=== PATIENT | female | born 1945 | race Caucasian/White ===

== ENCOUNTER 2025-05-13 08:20 | Inpatient (IN) ==
[2025-05-13] MEDS: MoRPHine SULFATE 4 MG/ML 1 ML CARP\\VIAL IV STA (09:09)
[2025-05-13] MEDS: ONDANSETRON INJ 2 MG/ML 2 ML VIAL IV STA (09:09)
--- NOTE | 2025-05-13 09:16 | Emergency Department Note ---
Impression & Plan Acute left lower quadrant pain, Diverticulitis, Acute UTI (urinary tract infection), Acute left-sided low back pain ED Provider Note HISTORY OF PRESENT ILLNESS: Patient is an 80-year-old female presenting with left low back pain and left lower quadrant abdominal pain. Patient reports that symptoms have been ongoing for over a week. She was seen 4 days ago and reports that the pain is just gotten progressively worse. She locates the pain to the left lower back and states it wraps around her left flank and into her left lower quadrant. She describes it as "it feels really numb." She states she been taking oxycodone for pain but it has not helped. Denies any dysuria or hematuria. Denies any vomiting but does report some intermittent nausea. She does report some episodes of diarrhea. Denies any recent antibiotic use. Denies any fevers or chills. Abdominal surgical history significant for tubal ligation and cholecystectomy. ROS: as above PHYSICAL EXAM: Constitutional: Patient appears in no acute distress. HENT: Head: Normocephalic and atraumatic. Eyes: EOMI, PERRL Mouth/Throat: Mucous membranes moist. Neck: Trachea midline. Neck supple. Cardiovascular: RRR, No murmurs, rubs or gallops. Intact distal pulses. Pulmonary/Chest: No respiratory distress. Breath sounds clear and equal bilaterally. No wheezes or rales. Abdominal: Abdomen soft, no tenderness, rebound or guarding. Back: No midline spinal tenderness, no CVA tenderness. No step-offs. Left lower paraspinal tenderness. No rashes Musculoskeletal: No edema, tenderness or deformity noted. Skin: Warm and dry. No rash, erythema, pallor or cyanosis Psychiatric: Appropriate mood and affect for situation. Neurological: Alert and keenly responsive. CN II-XII grossly intact, moving all extremities equally and fully. MDM: - Vitals signs showed hypertension - History obtained via patient. History as above. - Chronic conditions affecting care: HTN; CAD - Differential diagnoses include, but are not limited to: Aortic aneurysm; diverticulitis; ischemic colitis; inguinal hernia; ureteral calculi - Order placed for continuous cardiac monitoring. At this time, monitor showed rate of 73 bpm with normal sinus rhythm, per my interpretation. - External medical records reviewed. - Laboratory workup interpreted by myself showed normal WBC; slight hyponatremia (Na 134); normal lactate; normal AST/ALT; normal lipase - UA showed evidence of infection. - CT lumbar spine with IV contrast negative for acute fracture. I have degenerative changes. - CT abdomen/pelvis with IV contrast showed findings suspicious for diverticulitis. - Patient given 4 mg IV morphine and 4 mg IV zofran for symptomatic management in the emergency department. On reassessment, she reports her pain has slightly improved. Given 4.5 g of IV Zosyn for UTI and diverticulitis treatment. - Discussed results with the patient. She is feeling slightly improved after the pain medication, but is hesitant to go home with her continued pain and infections. Will discuss case with hospitalist service. - Discussion was had with geriatric case manager about patient's case and need for admission - Hospitalist consulted for admission - Patient admitted to [facility] hospitalist service for further evaluation and management. ASSESSMENT AND PLAN: Diagnosis: Acute left lower quadrant pain; left low back pain; diverticulitis; acute UTI Plan: admit Past Med/Surg History Problem List (Updated 05/13/25 @ 12:13 by Eden Brown MD) Acute left-sided low back pain (Acute) Acute UTI (urinary tract infection) (Acute) Diverticulitis (Acute) Back pain (Acute) Acute left lower quadrant pain (Acute) Medical History (Updated 05/13/25 @ 12:13 by Eden Brown MD) Tremor Arthritis GERD (gastroesophageal reflux disease) HLD (hyperlipidemia) Hypertension Surgical History (Updated 05/13/25 @ 11:54 by Nay Hutchins PA-C) History of epidural steroid injection into lumbar spine Hx of colonoscopy Hx of cholecystectomy Hx of cataract surgery Family History (Updated 05/13/25 @ 11:54 by Nay Hutchins PA-C) Mother Breast cancer Thyroid disease Social History (Updated 05/13/25 @ 11:54 by Nay Hutchins PA-C) Smoking Status: Never smoker Hx Alcohol Use: No Hx Substance Use: No Preferred Language: Indonesian Feels Safe at Home: Yes Allergies Allergies Allergy/AdvReac Type Severity Reaction Status Date / Time No Known Allergies Allergy Verified 01/24/16 06:27 Home Meds Home Medications Medication Instructions Recorded Confirmed atorvastatin 10 mg tablet 10 mg PO .3X A WEEK 07/16/25 07/16/25 propranolol 80 mg capsule,24 80 mg PO DAILY 05/13/25 05/13/25 hr,extended release Previous Rx's Medication Instructions Recorded oxycodone 5 mg tablet 5 mg PO Q8H PRN pain #10 tabs 05/11/25 Results & Data (ED) Vital Signs Vital Signs - 24 hr 05/13/25 08:24 05/13/25 08:45 05/13/25 09:10 Temperature 36.7 C Temperature Source Temporal Artery Scan Pulse Rate 69 67 73 Pulse Rate from SpO2 Sensor Pulse Rhythm Regular Respiratory Rate 20 20 20 Respiratory Effort / Characteristics Non-Labored Spontaneous Respiratory Depth Normal Blood Pressure 209/105 H 192/100 H Blood Pressure Mean 139 130 Pulse Oximetry 96 98 96 Oxygen Delivery Method Room Air Room Air Room Air Sepsis Recent Fever Within 48 Hours No Sepsis New/Unexplained Change in Mental Status No Sepsis Action Taken by Nursing No Action Required 05/13/25 09:15 05/13/25 09:30 05/13/25 10:30 Temperature Temperature Source Pulse Rate 74 68 73 Pulse Rate from SpO2 Sensor 68 73 Pulse Rhythm Respiratory Rate 24 14 Respiratory Effort / Characteristics Respiratory Depth Blood Pressure 160/91 H 169/86 H Blood Pressure Mean 114 113 Pulse Oximetry 95 96 Oxygen Delivery Method Room Air Room Air Sepsis Recent Fever Within 48 Hours Sepsis New/Unexplained Change in Mental Status Sepsis Action Taken by Nursing Laboratory Data 05/13/25 08:40 05/13/25 08:40 Lab Results 05/13/25 05/13/25 05/13/25 Range/Units 08:40 09:00 09:07 WBC 9.00 (4.8-10.8) K/ul RBC 4.52 (4.20-5.40) M/uL Hgb 14.8 (12.0-16.0) g/dl Hct 42.5 (37.0-47.0) % MCV 94.0 (80.0-100.0) fL MCH 32.7 (25.0-34.0) pg MCHC 34.8 (32.0-36.0) g/dL RDW Std Deviation 43.8 (36.4-46.3) fL RDW Coeff of Gregory 12.6 (11.5-14.5) % Plt Count 184 (130-400) K/uL MPV 11.5 (9.4-12.4) fL Immature Gran % (Auto) 0.1 % Neut % (Auto) 49.2 % Lymph % (Auto) 34.3 % [place] % (Auto) 8.3 % Eos % (Auto) 7.7 % Baso % (Auto) 0.4 % Neut # (Auto) 4.42 (1.40-6.50) K/uL Lymph # (Auto) 3.09 (1.20-3.40) K/uL [place] # (Auto) 0.75 H (0.11-0.59) K/uL Eos # (Auto) 0.69 H (0.00-0.50) K/uL Baso # (Auto) 0.04 (0.00-0.20) K/uL Immature Gran # (Auto) 0.01 (0.01-0.20) K/uL PT 11.3 (9.0-12.0) Seconds INR 1.0 (0.9-1.1) Sodium 134 L (136-145) mmol/L Potassium 3.9 (3.5-5.1) mmol/L Chloride 101 (98-107) mmol/L Carbon Dioxide 27 (21-32) mmol/L Anion Gap 6 (3-11) BUN 14 (6-23) mg/dl Creatinine 0.99 (0.6-1.2) mg/dl Est Cr Clr Drug Dosing 48.5 ml/min eGFR 57.28 BUN/Creatinine Ratio 14.1 (10-20) Glucose 113 H (70-99(Fasting)) mg/dl Lactate 0.9 (0.4-2.0) mmol/L Calcium 9.2 (8.6-10.3) mg/dl Total Bilirubin 0.8 (0.2-1.0) mg/dl AST 19 (13-39) U/L ALT 12 (7-52) U/L Alkaline Phosphatase 76 (34-104) U/L Total Protein 8.2 (6.0-8.3) gm/dl Albumin 4.2 (3.4-5.0) gm/dl Globulin 4.0 (2.5-4.0) gm/dl Albumin/Globulin Ratio 1.1 (0.9-2) Lipase 21 (11-82) U/L Urine Color Yellow Urine Appearance Cloudy A (Clear) Urine pH 5.0 (4.5-7.5) Ur Specific [place] 1.027 (1.000-1.030) Urine Protein Trace H (Negative) Urine Glucose (UA) Negative (Negative) Urine Ketones Trace H (Negative) Urine Blood 1+ H (Negative) Urine Nitrite Negative (Negative) Urine Bilirubin Negative (Negative) Urine Urobilinogen Negative (Negative) Ur Leukocyte Esterase 2+ H (Negative) Urine WBC (Auto) 21-50 H (0-5) /hpf Urine RBC (Auto) 11-20 H (0-2) /hpf U Hyaline Cast (Auto) 0-2 (0-2) /lpf U Epithel Cells (Auto) 6-10 H (0-2) /hpf Urine Bacteria (Auto) 2+ H (None Seen) Urine Comment Administered Medications Discontinued Medications Piperacillin Sod/Tazobactam Sod (Zosyn) 4.5 gm in 100 mls @ 200 mls/hr IV NOW ONE; Protocol Stop: 05/13/25 10:59 Last Infusion: 05/13/25 11:36 Dose: Infused Documented By: Admin: 05/13/25 10:38 Dose: 200 mls/hr Documented By: Ioversol (Optiray 320 100ml) 94 ml IV ONCE ONE Stop: 05/13/25 09:57 Last Admin: 05/13/25 09:56 Dose: 94 ml Documented By: ROBERT Morphine Sulfate (Morphine Sulfate 4 Mg/Ml 1 Ml Carp\\Vial) 4 mg IV NOW STA Stop: 05/13/25 08:58 Last Admin: 05/13/25 09:09 Dose: 4 mg Documented By: Ondansetron HCl (Ondansetron Inj 2 Mg/Ml 2 Ml Vial) 4 mg IV NOW STA Stop: 05/13/25 08:58 Last Admin: 05/13/25 09:09 Dose: 4 mg Documented By: Imaging Data Radiologist's Impression: Abdomen/Pelvis CT 05/13/25 08:[address] WITH IV CONTRAST CT DOSE: 1359.68mGy*cm HISTORY: Recurrent and worsening L low back pain; LLQ pain TECHNIQUE: Multiaxial CT images of the abdomen and pelvis were performed following the IV administration of 94 cc of Optiray, A dose lowering technique was utilized adhering to the principles of ALARA. COMPARISON STUDY: 05/11/2025 FINDINGS: The lung bases demonstrate dependent discoid atelectasis. Skeletal structures demonstrate severe degenerative disc disease at L4-5 and L5-S1. The gallbladder is absent. There is post cholecystectomy bile duct distention. There is very mild hepatic steatosis. No focal liver lesions are identified. There is no ascites. The adrenal glands, pancreas, and spleen are unremarkable. There is no obstructive uropathy. Bilateral extrarenal pelves are present. There is no CT evidence of pyelonephritis. The aorta is atherosclerotic. There is no aneurysm identified. There is no periarticular calcification. There is no bowel obstruction or free air. There is no ascites. In the pelvis, there are large diverticula in the distal descending colon and sigmoid colon and there is very minimal pericolonic inflammatory stranding near the juncture of the descending colon and sigmoid colon. The unopacified urinary bladder is grossly negative. The uterus is not significantly enlarged. There is no evidence of an adnexal mass. There is no fluid in cul-de-sac. IMPRESSION: Findings suspicious for mild diverticulitis involving the distal descending/proximal sigmoid colon. ACT 112: Negative or not required by law. The above report was generated using voice recognition software. It may contain grammatical, syntax or spelling errors. Electronically signed by: Stephanie Myers M.D. 05/13/2025 10:[address] 05/13/25 08:57 CT lumbar spine w con CLINICAL HISTORY: L low back pain COMPARISON STUDY: 05/11/2025 FINDINGS: There is osteopenia. No lumbar spine fracture or subluxation. There is diffuse degenerative disc disease and facet degeneration most severe at the lower lumbar spine. There is moderate bilateral neural foramina narrowing at L5- S1. There is possible mild central canal narrowing at L4-5. No severe central canal narrowing seen. No paraspinous hematoma seen. IMPRESSION: 1. No lumbar spine fracture seen. 2. Lumbar degenerative changes most severe at the lower lumbar spine. ACT 112: Negative or not required by law. Electronically signed by: Sp Mccarthy M.D. 05/13/2025 10:47 AM Discharge Plan Visit Data Chief Complaint: Abdominal Pain Stated Complaint: L SIDE PAIN SEVERE ED Provider: Eden Brown Discharge Problem: Acute left lower quadrant pain, Diverticulitis, Acute UTI (urinary tract infection), Acute left-sided low back pain Condition: Fair Forms Stand Alone Forms: My [facility] [employer] Prescriptions Prescriptions: No Action oxycodone 5 mg tablet 5 mg PO Q8H PRN (Reason: pain) Qty: 10 0RF atorvastatin 10 mg tablet 10 mg PO .3X A WEEK Rx Instructions: mon,wed,fri propranolol 80 mg capsule,extended release 24hr 80 mg PO DAILY Referrals Referrals: Rickey Cueva MD [Primary Care Provider] -
[2025-05-13 09:22] LABS: Hematocrit (blood only) 42.5 % (37.0-47.0); Hemoglobin 14.8 g/dl (12.0-16.0); Immature Granulocytes # (auto) 0.01 K/uL (0.01-0.20); Immature Granulocytes % (auto) 0.1 %; Mean Corpuscular Hemoglobin 32.7 pg (25.0-34.0); Mean Corpuscular Volume 94.0 fL (80.0-100.0); Platelet Count 184 K/uL (130-400); RDW Standard Deviation 43.8 fL (36.4-46.3); Red Blood Count 4.52 M/uL (4.20-5.40); White Blood Count 9.00 K/ul (4.8-10.8)
[2025-05-13 09:40] LABS: Alanine Aminotransferase 12.0 U/L (7-52); Albumin Globulin Ratio 1.1 (0.9-2); Alkaline Phosphatase 76.0 U/L (34-104); Anion Gap 6.0 (3-11); Bilirubin,Total 0.8 mg/dl (0.2-1.0); Blood Urea Nitrogen 14.0 mg/dl (6-23); Calcium 9.2 mg/dl (8.6-10.3); Carbon Dioxide 27.0 mmol/L (21-32); Chloride 101.0 mmol/L (98-107); Creatinine Clr Calc Pharmacy 48.5 ml/min; Globulin 4.0 gm/dl (2.5-4.0); Glucose 113.0 mg/dl (70-99(Fasting)); Lipase 21.0 U/L (11-82); Potassium 3.9 mmol/L (3.5-5.1); Sodium 134.0 mmol/L (136-145); Total Protein 8.2 gm/dl (6.0-8.3)
[2025-05-13 09:54] LABS: Appearance Urine Cloudy (Clear); Bacteria Urine Automated 2+ (None Seen); Cast Urine Automated 0-2 /lpf (0-2); Glucose Urine UA Negative (Negative); WBC Urine Automated 21-50 /hpf (0-5)
[2025-05-13] MEDS: OPTIRAY 320 100ml IV ONE (09:56)
[2025-05-13 10:08] LABS: INR 1.0 (0.9-1.1); Prothrombin Time 11.3 Seconds (9.0-12.0)
--- NOTE | 2025-05-13 10:27 | CT Scan Report ---
ABDOMEN AND PELVIS CT WITH IV CONTRAST CT DOSE: 1359.68mGy*cm HISTORY: Recurrent and worsening L low back pain; LLQ pain TECHNIQUE: Multiaxial CT images of the abdomen and pelvis were performed following the IV administrat ion of 94 cc of Optiray, A dose lowering technique was utilized adhering to the principles of ALARA. COMPARISON STUDY: 05/11/2025 FINDINGS: The lung bases demonstrate dependent discoid atelectasis. Skeletal structures demonstrate s evere degenerative disc disease at L4-5 and L5-S1. The gallbladder is absent. There is post cholecystectomy bile duct distention. There is very mild hep atic steatosis. No focal liver lesions are identified. There is no ascites. The adrenal glands, pancreas, and spleen are unremarkable. There is no obstructive uropathy. Bilateral extrarenal pelves are present. There is no CT evidence of pyelonephritis. The aorta is atherosclerotic. There is no aneurysm identified. There is no periarticular calcificatio n. There is no bowel obstruction or free air. There is no ascites. In the pelvis, there are large diverticula in the distal descending colon and sigmoid colon and there is very minimal pericolonic inflammatory stranding near the juncture of the descending colon and sig moid colon. The unopacified urinary bladder is grossly negative. The uterus is not significantly enla rged. There is no evidence of an adnexal mass. There is no fluid in cul-de-sac. IMPRESSION: Findings suspicious for mild diverticulitis involving the distal descending/proximal sigm oid colon. ACT 112: Negative or not required by law. The above report was generated using voice recognition software. It may contain grammatical, syntax o r spelling errors. Electronically signed by: Stephanie Myers M.D. 05/13/2025 10:26 AM
[2025-05-13] MEDS: PIPERACILLIN/TAZOBACTAM 4.5 GM/100 ML BAG IV ONE (10:38)
--- NOTE | 2025-05-13 10:49 | CT Scan Report ---
CT lumbar spine w con CLINICAL HISTORY: L low back pain COMPARISON STUDY: 05/11/2025 FINDINGS: There is osteopenia. No lumbar spine fracture or subluxation. There is diffuse degenerative disc disease and facet degeneration most severe at the lower lumbar spine. There is moderate bilater al neural foramina narrowing at L5-S1. There is possible mild central canal narrowing at L4-5. No sev ere central canal narrowing seen. No paraspinous hematoma seen. IMPRESSION: 1. No lumbar spine fracture seen. 2. Lumbar degenerative changes most severe at the lower lumbar spine. ACT 112: Negative or not required by law. Electronically signed by: Sp Mccarthy M.D. 05/13/2025 10:47 AM
--- NOTE | 2025-05-13 11:56 | History & Physical Report ---
Date of Service May 13, 2025 Assessment & Plan (1) Diverticulitis: (2) Acute UTI (urinary tract infection): (3) Acute left-sided low back pain: (4) Hypertension: (5) HLD (hyperlipidemia): (6) Tremor: Plan This is an 80 yr old F who has a significant PMH of HTN, HLD, GERD, Osteoarthritis who presents to ED 2/2 L sided low back and lower abd pain x 5 days. #Acute uncomplicated Diverticulitis #Abdominal pain admit to medical continue IV zosyn conservative tx with bowel rest, IVF, NPO except sips/chips consider gen surg if no significant improvement recommend c scope 6-8 weeks after resolution #Acute uncomplicated cystitis urinary urg/freq, abnormal urine await urine culture continue IV zosyn for now #Left sided low back pain appears MSK in nature, does not appear to go along with other sx may improve with improvement of infections CT Lumbar spine showing DDD apply lidocaine patch, PT/OT for now could consider MRI if worsening or not improving #HTN #Tremor BP elevated likely 2/2 to pain continue propranolol #DVT ppx: Lovenox FULL CODE PCP: Hammad Dispo: admit to medical Pt was seen and examined in collaboration with Dr. Carrington, please see addendum I spent a total of 60 minutes coordinating, documenting and providing care for this patient excluding time spent in the performance of separately billed services or time spent by another provider/QHP. History of Present Illness Chief Complaint: LLQ abd pain x 5 days. Primary Care Provider: Rickey Cueva MD This is an 80 yr old F who has a significant PMH of HTN, HLD, GERD, Osteoarthritis who presents to ED 2/2 L sided low back and lower abd pain x 5 days. History is obtained from patient, son at bedside, ED provider and external chart review. Patient reports left-sided low back pain along with left lower quadrant and periumbilical abdominal pain that is been progressively getting worse over the last 5 days. She also complains of associated nausea, constipation, last bowel movement was 3 days ago, urinary urgency, frequency and dysuria. She denies prior history of diverticulitis. She does have a prior history of urinary tract infections for which she does feel very similar to previous UTI 30 years ago. She denies any fever, chills, sweats, lightheadedness, dizziness, pain, shortness of breath, cough, hematuria or hematochezia. She has been taking [id number] Tylenol without relief. She was seen and evaluated on 05/11 in ED and at that time CT abdomen pelvis was unremarkable. She was prescribed a few tablets of oxycodone for which is not helping. She presents back to ED today due to worsening symptoms. She has been eating/drinking. Currently her pain is a 7 out of 10. Nothing makes the pain better or worse. In ED CT scan of abdomen pelvis reveal findings suspicious for mild diverticulitis involving the distal descending and proximal sigmoid colon. Lumbar spine CT was also ordered due to patient complaining of left-sided low back pain along with left-sided hip pain. Notable findings are moderate bilateral neural foraminal narrowing at L5-S1 and moderate central canal narrow ing at L4-L5. Allergies Allergy/AdvReac Type Severity Reaction Status Date / Time No Known Allergies Allergy Verified 01/24/16 06:27 Home Medications Medication Instructions Recorded Confirmed Type oxycodone 5 mg tablet 5 mg PO Q8H PRN pain #10 tabs 05/11/25 05/13/25 Rx atorvastatin 10 mg tablet 10 mg PO .3X A WEEK 05/13/25 05/13/25 History propranolol 80 mg capsule,24 80 mg PO DAILY 05/13/25 05/13/25 History hr,extended release Past Med/Surg History Problem List (Updated 05/13/25 @ 13:11 by Background Daemon) Acute left-sided low back pain (Acute) Acute UTI (urinary tract infection) (Acute) Diverticulitis (Acute) Back pain (Acute) Acute left lower quadrant pain (Acute) Medical History (Updated 05/13/25 @ 13:11 by Background Daemon) Tremor Arthritis GERD (gastroesophageal reflux disease) HLD (hyperlipidemia) Hypertension Surgical History (Updated 05/13/25 @ 11:54 by Nay Hutchins PA-C) History of epidural steroid injection into lumbar spine Hx of colonoscopy Hx of cholecystectomy Hx of cataract surgery Family History (Updated 05/13/25 @ 11:54 by Nay Hutchins PA-C) Mother Breast cancer Thyroid disease Social History (Updated 05/13/25 @ 11:54 by Nay Hutchins PA-C) Smoking Status: Never smoker Hx Alcohol Use: Yes Alcohol type: wine and hard liquor Hx Substance Use: No Preferred Language: Persian Communication Ability: Effective [employer] Professor Required: No Beliefs That Will Affect Care: None Current Living Situation: Family and Other Current Living Situation Comment: Son lives with patient Feels Safe at Home: Yes Safety Concerns: Feels Safe At This Time Review of Systems Review of Systems: All systems reviewed & are unremarkable except as noted in HPI & below Physical Exam Physical Exam: Constitutional: WD/WN, vitals as above, NAD, sitting up in bed, pleasant, conversing easily Head: Normocephalic, Atraumatic Eyes: PERRL, conjunctivae normal, anicteric sclerae ENMT: external ear and nose normal, oropharynx normal Neck: trachea midline, no thyromegaly normal visual inspection Respiratory: normal respiratory effort, lungs clear to auscultation, no wheeze, rales, rhonchi. Normal insp/exp effort, no accessory muscle use Cardiovascular: RRR, no murmur, no edema Vessels: no JVD or carotid bruit Chest: normal inspection of chest Abdomen: normal bowel sounds, soft, TTP LLQ and periumbilical region, no rebound/guarding, no hepatosplenomegaly Musculoskeletal: arom x4, + pain to palpation L paraspinal musculature Skin: no rashes, warm and dry normal turgor Neurologic: PERRL, EOMI, accommodation nl, no face palsy, no dysarthria CN's II-XI intact bilaterally and moves all extremities Psychiatric: A+Ox3, euthymic affect Results & Data Results & Data Vital Signs (Past 12 Hours) Vital Signs Temp Pulse Resp BP Pulse Ox O2 Del Method 05/13/25 10:30 73 14 169/86 H 96 Room Air 05/13/25 09:30 68 24 160/91 H 95 Room Air 05/13/25 09:15 74 05/13/25 09:10 73 20 96 Room Air 05/13/25 08:45 67 20 192/100 H 98 Room Air 05/13/25 08:24 36.7 C 69 20 209/105 H 96 Room Air Laboratory Results I have independently reviewed and interpreted patient's admitting labs including CBC, CMP, lactate, lipase Diagnostic Findings Abdomen/Pelvis CT 05/13/25 08:[address] WITH IV CONTRAST CT DOSE: 1359.68mGy*cm HISTORY: Recurrent and worsening L low back pain; LLQ pain TECHNIQUE: Multiaxial CT images of the abdomen and pelvis were performed following the IV administration of 94 cc of Optiray, A dose lowering technique was utilized adhering to the principles of ALARA. COMPARISON STUDY: 05/11/2025 FINDINGS: The lung bases demonstrate dependent discoid atelectasis. Skeletal structures demonstrate severe degenerative disc disease at L4-5 and L5-S1. The gallbladder is absent. There is post cholecystectomy bile duct distention. There is very mild hepatic steatosis. No focal liver lesions are identified. There is no ascites. The adrenal glands, pancreas, and spleen are unremarkable. There is no obstructive uropathy. Bilateral extrarenal pelves are present. There is no CT evidence of pyelonephritis. The aorta is atherosclerotic. There is no aneurysm identified. There is no periarticular calcification. There is no bowel obstruction or free air. There is no ascites. In the pelvis, there are large diverticula in the distal descending colon and sigmoid colon and there is very minimal pericolonic inflammatory stranding near the juncture of the descending colon and sigmoid colon. The unopacified urinary bladder is grossly negative. The uterus is not significantly enlarged. There is no evidence of an adnexal mass. There is no fluid in cul-de-sac. IMPRESSION: Findings suspicious for mild diverticulitis involving the distal descending/proximal sigmoid colon. ACT 112: Negative or not required by law. The above report was generated using voice recognition software. It may contain grammatical, syntax or spelling errors. Electronically signed by: Stephanie Myers M.D. 05/13/2025 10:[address] 05/13/25 08:57 CT lumbar spine w con CLINICAL HISTORY: L low back pain COMPARISON STUDY: 05/11/2025 FINDINGS: There is osteopenia. No lumbar spine fracture or subluxation. There is diffuse degenerative disc disease and facet degeneration most severe at the lower lumbar spine. There is moderate bilateral neural foramina narrowing at L5- S1. There is possible mild central canal narrowing at L4-5. No severe central canal narrowing seen. No paraspinous hematoma seen. IMPRESSION: 1. No lumbar spine fracture seen. 2. Lumbar degenerative changes most severe at the lower lumbar spine. ACT 112: Negative or not required by law. Electronically signed by: Sp Mccarthy M.D. 05/13/2025 10:47 AM Medications Administered Medication List Discontinued Medications Piperacillin Sod/Tazobactam Sod (Zosyn) 4.5 gm in 100 mls @ 200 mls/hr IV NOW ONE; Protocol Stop: 05/13/25 10:59 Last Infusion: 05/13/25 11:36 Dose: Infused Documented By: Admin: 05/13/25 10:38 Dose: 200 mls/hr Documented By: Ioversol (Optiray 320 100ml) 94 ml IV ONCE ONE Stop: 05/13/25 09:57 Last Admin: 05/13/25 09:56 Dose: 94 ml Documented By: ROBERT Morphine Sulfate (Morphine Sulfate 4 Mg/Ml 1 Ml Carp\Vial) 4 mg IV NOW STA Stop: 05/13/25 08:58 Last Admin: 05/13/25 09:09 Dose: 4 mg Documented By: Ondansetron HCl (Ondansetron Inj 2 Mg/Ml 2 Ml Vial) 4 mg IV NOW STA Stop: 05/13/25 08:58 Last Admin: 05/13/25 09:09 Dose: 4 mg Documented By: COVID-19 Results Results COVID-19 Adm Lab Results: RBC 4.52 M/uL (4.20-5.40) 05/13/25 WBC 9.00 K/ul (4.8-10.8) 05/13/25 Hgb 14.8 g/dl (12.0-16.0) 05/13/25 Hct 42.5 % (37.0-47.0) 05/13/25 Plt Count 184 K/uL (130-400) 05/13/25 Neutrophils (%) (Auto) 49.2 % 05/13/25 Lymphocytes (%) (Auto) 34.3 % 05/13/25 Monocytes # (Auto) 0.75 K/uL (0.11-0.59) H 05/13/25 Eosinophils # (Auto) 0.69 K/uL (0.00-0.50) H 05/13/25 Immature Granulocyte % (Auto) 0.1 % 05/13/25 Neutrophils # (Auto) 4.42 K/uL (1.40-6.50) 05/13/25 Lymphocytes # (Auto) 3.09 K/uL (1.20-3.40) 05/13/25 Monocytes # (Auto) 0.75 K/uL (0.11-0.59) H 05/13/25 Eosinophils # (Auto) 0.69 K/uL (0.00-0.50) H 05/13/25 Basophils # (Auto) 0.04 K/uL (0.00-0.20) 05/13/25 Immature Granulocyte # (Auto) 0.01 K/uL (0.01-0.20) 5 Na 134 mmol/L (136-145) L 05/13/25 K 3.9 mmol/L (3.5-5.1) 05/13/25 Cl 101 mmol/L (98-107) 05/13/25 CO2 27 mmol/L (21-32) 05/13/25 Anion Gap 6 (3-11) 05/13/25 BUN 14 mg/dl (6-23) 05/13/25 Creatinine 0.99 mg/dl (0.6-1.2) 05/13/25 BUN/Creatinine Ratio 14.1 (10-20) 05/13/25 Glucose Level 113 mg/dl (70-99(Fasting)) H 05/13/25 Ca 9.2 mg/dl (8.6-10.3) 05/13/25 Total Bilirubin 0.8 mg/dl (0.2-1.0) 05/13/25 AST/SGOT 19 U/L (13-39) 05/13/25 ALT/SGPT 12 U/L (7-52) 05/13/25 Alkaline Phosphatase 76 U/L (34-104) 05/13/25 Total Protein 8.2 gm/dl (6.0-8.3) 05/13/25 Albumin 4.2 gm/dl (3.4-5.0) 05/13/25 Globulin 4.0 gm/dl (2.5-4.0) 05/13/25 Albumin/Globulin Ratio 1.1 (0.9-2) 05/13/25 INR 1.0 (0.9-1.1) 05/13/25 Code Status & VTE Plan Code Status FULL CODE Supervising Physician Co-Signing Physician Notes Patient is an 80-year-old female with history of hypertension, hyperlipidemia and other medical problems presents with history of left upper quadrant abdominal pain and left lower back pain which have been gradually worsening over the past 5 days. She reports associated nausea and constipation. Also reports having some dysuria but no hematuria, fever, chills. Please review HPI for complete details of presentation. I personally reviewed blood work and imaging studies. CT abdomen suspicious for mild diverticulitis involving the sigmoid colon. Lumbar CT showed degenerative changes but otherwise no fractures. UA suggestive of possible UTI. On exam patient is well-built and nourished, no apparent distress, normocephalic atraumatic, EOMI, normal breath sounds, S1-S2, no edema, abdomen soft, left upper quadrant mild tenderness, normal bowel sounds, alert, awake, oriented, grossly no focal deficits, left lower back/hip tenderness. Patient is admitted for management of acute diverticulitis and UTI. Agree with IV Zosyn, fluids, bowel rest. Pain control as needed. Blood pressure elevated likely situational secondary to pain. IV hydralazine as needed. I personally interviewed and examined the patient at bedside. I have reviewed the advanced practitioner's documentation on the date of service referred in note and agree with plan. Patient's care is coordinated with Nay Hutchins PA-C. Please refer to the documentation above for details of patient's presentation and for discussion of other issues. I spent a total [id number] coordinating, documenting, and providing care for this patient excluding time spent in the performance of separately billed services or time spent by another provider/QHP.
[2025-05-13] MEDS: MoRPHine SULFATE 2 MG/ML CARP IV STA (12:32)
[2025-05-13] MEDS: LIDOCAINE 5% 1 PATCH TD SCH (12:32)
[2025-05-13] MEDS ORDERED: FAMOTIDINE 20 MG TAB PO PRN (13:12)
[2025-05-13] MEDS: SODIUM CHLORIDE 0.9% 1,000 ML IV SCH (13:13)
[2025-05-13] MEDS: ONDANSETRON INJ 2 MG/ML 2 ML VIAL IV PRN (15:17)
[2025-05-13] MEDS: MoRPHine SULFATE 4 MG/ML 1 ML CARP\\VIAL IV PRN (15:17)
[2025-05-13] MEDS: PIPERACILLIN/TAZOBACTAM 4.5 GM/100 ML BAG IV SCH (15:49)
[2025-05-13] MEDS: LACTATED RINGER'S 1,000 ML IV SCH (18:43)
[2025-05-13] MEDS: ENOXAPARIN INJ 40 MG/0.4 ML SYR SQ SCH (20:41)
[2025-05-13] MEDS: REMOVE LIDODERM PATCH SCH (20:41)
[2025-05-14] MEDS: HYDROmorphone INJ 0.5 MG/0.5 ML SYR IV STA (04:48)
[2025-05-14] MEDS: ADVANCED PROBIOTIC 625 MG CAPSULE PO SCH (08:25)
[2025-05-14] MEDS: PROPRANOLOL HCL LA 80 MG CAPCR PO SCH (08:25)
[2025-05-14 08:45] LABS: Hematocrit (blood only) 40.9 % (37.0-47.0); Hemoglobin 14.4 g/dl (12.0-16.0); Immature Granulocytes # (auto) 0.03 K/uL (0.01-0.20); Immature Granulocytes % (auto) 0.3 %; Mean Corpuscular Hemoglobin 33.2 pg (25.0-34.0); Mean Corpuscular Volume 94.2 fL (80.0-100.0); Platelet Count 164 K/uL (130-400); RDW Standard Deviation 43.9 fL (36.4-46.3); Red Blood Count 4.34 M/uL (4.20-5.40); White Blood Count 8.75 K/ul (4.8-10.8)
[2025-05-14 09:01] LABS: Alanine Aminotransferase 10.0 U/L (7-52); Albumin Globulin Ratio 1.0 (0.9-2); Alkaline Phosphatase 66.0 U/L (34-104); Anion Gap 6.0 (3-11); Bilirubin,Total 0.9 mg/dl (0.2-1.0); Blood Urea Nitrogen 10.0 mg/dl (6-23); Calcium 8.6 mg/dl (8.6-10.3); Carbon Dioxide 28.0 mmol/L (21-32); Chloride 102.0 mmol/L (98-107); Creatinine Clr Calc Pharmacy 58.8 ml/min; Globulin 3.6 gm/dl (2.5-4.0); Glucose 93.0 mg/dl (70-99(Fasting)); Magnesium 1.8 mg/dl (1.7-2.4); Potassium 3.5 mmol/L (3.5-5.1); Sodium 136.0 mmol/L (136-145); Total Protein 7.3 gm/dl (6.0-8.3)
--- NOTE | 2025-05-14 12:02 | Hospitalist Progress Note ---
Date of Service May 14, 2025 Assessment & Plan (1) Diverticulitis: (2) Acute UTI (urinary tract infection): (3) Acute left-sided low back pain: (4) Hypertension: (5) HLD (hyperlipidemia): (6) Tremor: Plan This is an 80 yr old F who has a significant PMH of HTN, HLD, GERD, Osteoarthritis who presents to ED 2/2 L sided low back and lower abd pain x 5 days. #Acute uncomplicated Diverticulitis #Abdominal pain continue IV zosyn conservative tx with bowel rest, IVF, will advance to clear liquid consider gen surg if no significant improvement recommend c scope 6-8 weeks after resolution #Acute uncomplicated cystitis urinary urg/freq, abnormal urine Follow urine culture continue IV zosyn for now #Left sided low back pain poss. MSK in nature, poss. 2/2 diverticulitis may improve with improvement of infections CT Lumbar spine showing DDD apply lidocaine patch, PT/OT for now #HTN #Tremor BP elevated likely 2/2 to pain continue propranolol #DVT ppx: Lovenox FULL CODE PCP: Dr. Cueva Dispo: med/surg Admission and Anticipated Discharge Date Admission Date: May 13, 2025 Subjective Pt seen in follow up of diverticulitis, UTI Pt sitting up in bed in NAD, reports continues to have lower abd. pain, L sided pain abd. vs hip - pt says this pain feels the same and started at the same time, so likely diverticulitis pain no fever, chills, chest pain, shortness of breath, no abd.pain n/v Review of Systems Review of Systems: All systems reviewed & are unremarkable except as noted in Subjective Physical Exam Physical Exam: Constitutional: WD/WN, in NAD Head: Normocephalic, Atraumatic Eyes: PERRL, conjunctivae normal, anicteric sclerae ENMT: external ear and nose normal Neck: normal visual inspection Respiratory: normal respiratory effort, lungs clear to auscultation, no wheeze, rales, rhonchi. Cardiovascular: RRR, no murmur, no edema Chest: normal inspection of chest Abdomen: normal bowel sounds, soft, TTP LLQ and periumbilical region, no rebound/guarding Musculoskeletal: arom x4, + pain to palpation L paraspinal musculature Skin: no rashes, warm and dry normal turgor Neurologic: PERRL, EOMI, no face palsy, no dysarthria, moves all extremities Psychiatric: A+Ox3, euthymic affect Results & Data Results & Data Vital Signs (Past 12 Hours) Vital Signs Temp Pulse Resp BP Pulse Ox O2 Del Method 05/14/25 08:09 36.5 C 66 18 153/87 H 94 Room Air Laboratory Results 05/14/25 Range/Units 07:12 WBC 8.75 (4.8-10.8) K/ul RBC 4.34 (4.20-5.40) M/uL Hgb 14.4 (12.0-16.0) g/dl Hct 40.9 (37.0-47.0) % MCV 94.2 (80.0-100.0) fL MCH 33.2 (25.0-34.0) pg MCHC 35.2 (32.0-36.0) g/dL RDW Std Deviation 43.9 (36.4-46.3) fL RDW Coeff of Gregory 12.7 (11.5-14.5) % Plt Count 164 (130-400) K/uL MPV 11.3 (9.4-12.4) fL Immature Gran % (Auto) 0.3 % Neut % (Auto) 56.3 % Lymph % (Auto) 29.5 % Pierce % (Auto) 8.8 % Eos % (Auto) 4.6 % Baso % (Auto) 0.5 % Neut # (Auto) 4.93 (1.40-6.50) K/uL Lymph # (Auto) 2.58 (1.20-3.40) K/uL Pierce # (Auto) 0.77 H (0.11-0.59) K/uL Eos # (Auto) 0.40 (0.00-0.50) K/uL Baso # (Auto) 0.04 (0.00-0.20) K/uL Immature Gran # (Auto) 0.03 (0.01-0.20) K/uL Sodium 136 (136-145) mmol/L Potassium 3.5 (3.5-5.1) mmol/L Chloride 102 (98-107) mmol/L Carbon Dioxide 28 (21-32) mmol/L Anion Gap 6 (3-11) BUN 10 (6-23) mg/dl Creatinine 0.81 (0.6-1.2) mg/dl Est Cr Clr Drug Dosing 58.8 ml/min eGFR 72.88 BUN/Creatinine Ratio 12.3 (10-20) Glucose 93 (70-99(Fasting)) mg/dl Calcium 8.6 (8.6-10.3) mg/dl Magnesium 1.8 (1.7-2.4) mg/dl Total Bilirubin 0.9 (0.2-1.0) mg/dl AST 17 (13-39) U/L ALT 10 (7-52) U/L Alkaline Phosphatase 66 (34-104) U/L Total Protein 7.3 (6.0-8.3) gm/dl Albumin 3.7 (3.4-5.0) gm/dl Globulin 3.6 (2.5-4.0) gm/dl Albumin/Globulin Ratio 1.0 (0.9-2) Medications Administered Current Inpatient Medications Acetaminophen (Acetaminophen 325 Mg Tab) 650 mg PO Q4H PRN PRN Reason: pain/fever Stop: 06/12/25 13:11 Atorvastatin Calcium (Atorvastatin 10 Mg Tab) 10 mg PO [id number] [facility] Stop: 06/14/25 08:59 Enoxaparin Sodium (Enoxaparin Inj 40 Mg/0.4 Ml Syr) 40 mg SQ HS [facility] Stop: 06/12/25 20:59 Last Admin: 05/13/25 20:41 Dose: 40 mg Famotidine (Famotidine 20 Mg Tab) 20 mg PO DAILY PRN PRN Reason: Heartburn Stop: 06/12/25 13:11 Hydralazine HCl (Hydralazine Hcl 20 Mg/Ml Vial) 5 mg IV Q6H PRN PRN Reason: SBP > 180 Stop: 06/12/25 14:12 Piperacillin Sod/Tazobactam Sod (Zosyn) 4.5 gm in 100 mls @ 25 mls/hr IV Q8H [facility]; Protocol Stop: 05/23/25 16:29 Last Admin: 05/14/25 08:24 Dose: 25 mls/hr Lactated Ringer's (Lr) 1,000 mls @ 80 mls/hr IV .[id number] [facility] Stop: 05/15/25 05:29 Last Admin: 05/14/25 07:59 Dose: 80 mls/hr Lactobacillus Acidophilus (Advanced Probiotic 625 Mg Capsule) 1,250 mg PO DAILY [facility] Stop: 06/13/25 08:59 Last Admin: 05/14/25 08:25 Dose: 1,250 mg Lidocaine (Lidocaine 5% 1 Patch) 1 patch TD DAILY [facility] Stop: 06/12/25 12:29 Last Admin: 05/14/25 08:26 Dose: 1 patch Melatonin (Melatonin 3 Mg Tab) 6 mg PO HS PRN PRN Reason: Sleep Stop: 06/12/25 20:59 Miscellaneous (Remove Lidoderm Patch) 1 each N/A DAILY@2100 [facility] Stop: 06/12/25 20:59 Last Admin: 05/13/25 20:41 Dose: 1 each Morphine Sulfate (Morphine Sulfate 4 Mg/Ml 1 Ml Carp\Vial) 3 mg IV Q4H PRN PRN Reason: Severe Pain (Scale 7, 8, 9,10) Stop: 05/27/25 13:11 Last Admin: 05/14/25 11:36 Dose: 3 mg Ondansetron HCl (Ondansetron Inj 2 Mg/Ml 2 Ml Vial) 4 mg IV Q6H PRN PRN Reason: Nausea Stop: 06/12/25 13:11 Last Admin: 05/13/25 15:17 Dose: 4 mg Polyethylene Glycol (Polyethylene (Miralax) 17 Gm Pack) 17 gm PO DAILY PRN PRN Reason: Constipation Stop: 06/12/25 13:11 Propranolol HCl (Propranolol Hcl La 80 Mg Capcr) 80 mg PO DAILY UNIQUE Stop: 06/13/25 08:59 Last Admin: 05/14/25 08:25 Dose: 80 mg Tramadol HCl (Tramadol Hcl 50 Mg Tablet) 50 mg PO Q4H PRN PRN Reason: Moderate Pain (Scale 4, 5, 6) Stop: 06/12/25 13:11
[2025-05-14] MEDS: POTASSIUM CHLORIDE CRTAB 20 MEQ TABCR PO STA (12:04)
[2025-05-14] MEDS: MELATONIN 3 MG TAB PO PRN (20:00)
--- NOTE | 2025-05-15 07:53 | Hospitalist Progress Note ---
Date of Service May 15, 2025 Assessment & Plan (1) Diverticulitis: (2) Acute UTI (urinary tract infection): (3) Acute left-sided low back pain: (4) Hypertension: (5) HLD (hyperlipidemia): (6) Tremor: Plan This is an 80 yr old F who has a significant PMH of HTN, HLD, GERD, Osteoarthritis who presents to ED 2/2 L sided low back and lower abd pain x 5 days. #Acute uncomplicated Diverticulitis #Abdominal pain continue IV zosyn conservative tx with bowel rest, IVF, will advance to clear liquid consider gen surg if no significant improvement recommend c scope 6-8 weeks after resolution #Acute uncomplicated cystitis urinary urg/freq, abnormal urine Follow urine culture continue IV zosyn for now #Left sided low back pain/flank pain poss. MSK in nature, poss. 2/2 diverticulitis may improve with improvement of infections CT Lumbar spine showing DDD apply lidocaine patch, PT/OT for now #HTN #Tremor BP elevated on admission likely 2/2 to pain continue propranolol #DVT ppx: Lovenox FULL CODE PCP: Dr. Cueva Dispo: med/surg Admission and Anticipated Discharge Date Admission Date: May 13, 2025 Subjective Pt seen in follow up of diverticulitis, UTI Pt sitting up in bed in NAD, reports continues to have lower abd. pain no fever, chills, chest pain, shortness of breath, no abd.pain n/v Review of Systems Review of Systems: All systems reviewed & are unremarkable except as noted in Subjective Physical Exam Physical Exam: Constitutional: WD/WN, in NAD Head: Normocephalic, Atraumatic Eyes: PERRL, conjunctivae normal, anicteric sclerae ENMT: external ear and nose normal Neck: normal visual inspection Respiratory: normal respiratory effort, lungs clear to auscultation, no wheeze, rales, rhonchi. Cardiovascular: RRR, no murmur, no edema Chest: normal inspection of chest Abdomen: normal bowel sounds, soft, TTP LLQ, left flank, no rebound/guarding Musculoskeletal: arom x4, + pain to palpation L paraspinal musculature Skin: no rashes, warm and dry normal turgor Neurologic: PERRL, EOMI, no face palsy, no dysarthria, moves all extremities Psychiatric: A+Ox3, euthymic affect Results & Data Results & Data Vital Signs (Past 12 Hours) Vital Signs Temp Pulse Pulse Resp BP Pulse Ox O2 Del Method 05/15/25 07:07 36.4 C L 61 16 159/86 H 97 Room Air 05/14/25 20:09 36.6 C 67 18 164/81 H 94 Room Air Laboratory Results 05/14/25 Range/Units 07:12 WBC 8.75 (4.8-10.8) K/ul RBC 4.34 (4.20-5.40) M/uL Hgb 14.4 (12.0-16.0) g/dl Hct 40.9 (37.0-47.0) % MCV 94.2 (80.0-100.0) fL MCH 33.2 (25.0-34.0) pg MCHC 35.2 (32.0-36.0) g/dL RDW Std Deviation 43.9 (36.4-46.3) fL RDW Coeff of Gregory 12.7 (11.5-14.5) % Plt Count 164 (130-400) K/uL MPV 11.3 (9.4-12.4) fL Immature Gran % (Auto) 0.3 % Neut % (Auto) 56.3 % Lymph % (Auto) 29.5 % Mcduffie % (Auto) 8.8 % Eos % (Auto) 4.6 % Baso % (Auto) 0.5 % Neut # (Auto) 4.93 (1.40-6.50) K/uL Lymph # (Auto) 2.58 (1.20-3.40) K/uL Mcduffie # (Auto) 0.77 H (0.11-0.59) K/uL Eos # (Auto) 0.40 (0.00-0.50) K/uL Baso # (Auto) 0.04 (0.00-0.20) K/uL Immature Gran # (Auto) 0.03 (0.01-0.20) K/uL Sodium 136 (136-145) mmol/L Potassium 3.5 (3.5-5.1) mmol/L Chloride 102 (98-107) mmol/L Carbon Dioxide 28 (21-32) mmol/L Anion Gap 6 (3-11) BUN 10 (6-23) mg/dl Creatinine 0.81 (0.6-1.2) mg/dl Est Cr Clr Drug Dosing 58.8 ml/min eGFR 72.88 BUN/Creatinine Ratio 12.3 (10-20) Glucose 93 (70-99(Fasting)) mg/dl Calcium 8.6 (8.6-10.3) mg/dl Magnesium 1.8 (1.7-2.4) mg/dl Total Bilirubin 0.9 (0.2-1.0) mg/dl AST 17 (13-39) U/L ALT 10 (7-52) U/L Alkaline Phosphatase 66 (34-104) U/L Total Protein 7.3 (6.0-8.3) gm/dl Albumin 3.7 (3.4-5.0) gm/dl Globulin 3.6 (2.5-4.0) gm/dl Albumin/Globulin Ratio 1.0 (0.9-2) Medications Administered Current Inpatient Medications Acetaminophen (Acetaminophen 325 Mg Tab) 650 mg PO Q4H PRN PRN Reason: pain/fever Stop: 06/12/25 13:11 Atorvastatin Calcium (Atorvastatin 10 Mg Tab) 10 mg PO MoWeFr@0900 [facility] Stop: 06/14/25 08:59 Enoxaparin Sodium (Enoxaparin Inj 40 Mg/0.4 Ml Syr) 40 mg SQ HS [facility] Stop: 06/12/25 20:59 Last Admin: 05/14/25 19:59 Dose: 40 mg Famotidine (Famotidine 20 Mg Tab) 20 mg PO DAILY PRN PRN Reason: Heartburn Stop: 06/12/25 13:11 Hydralazine HCl (Hydralazine Hcl 20 Mg/Ml Vial) 5 mg IV Q6H PRN PRN Reason: SBP > 180 Stop: 06/12/25 14:12 Last Admin: 05/14/25 15:58 Dose: 5 mg Piperacillin Sod/Tazobactam Sod (Zosyn) 4.5 gm in 100 mls @ 25 mls/hr IV Q8H [facility]; Protocol Stop: 05/23/25 16:29 Last Infusion: 05/15/25 04:22 Dose: Infused Potassium Chloride (K Manish / Wtr) 10 meq in 100 mls @ 100 mls/hr IV Q1H [facility] Stop: 05/15/25 09:59 Sodium Chloride (Nss) 500 mls @ 50 mls/hr IV .Q10H ONE Stop: 05/15/25 17:50 Lactobacillus Acidophilus (Advanced Probiotic 625 Mg Capsule) 1,250 mg PO DAILY [facility] Stop: 06/13/25 08:59 Last Admin: 05/14/25 08:25 Dose: 1,250 mg Lidocaine (Lidocaine 5% 1 Patch) 1 patch TD DAILY [facility] Stop: 06/12/25 12:29 Last Admin: 05/14/25 08:26 Dose: 1 patch Melatonin (Melatonin 3 Mg Tab) 6 mg PO HS PRN PRN Reason: Sleep Stop: 06/12/25 20:59 Last Admin: 05/14/25 20:00 Dose: 6 mg Miscellaneous (Remove Lidoderm Patch) 1 each N/A DAILY@2100 [facility] Stop: 06/12/25 20:59 Last Admin: 05/14/25 20:12 Dose: 1 each Morphine Sulfate (Morphine Sulfate 4 Mg/Ml 1 Ml Carp\Vial) 3 mg IV Q4H PRN PRN Reason: Severe Pain (Scale 7, 8, 9,10) Stop: 05/27/25 13:11 Last Admin: 05/15/25 02:01 Dose: 3 mg Ondansetron HCl (Ondansetron Inj 2 Mg/Ml 2 Ml Vial) 4 mg IV Q6H PRN PRN Reason: Nausea Stop: 06/12/25 13:11 Last Admin: 05/14/25 20:01 Dose: 4 mg Polyethylene Glycol (Polyethylene (Miralax) 17 Gm Pack) 17 gm PO DAILY PRN PRN Reason: Constipation Stop: 06/12/25 13:11 Propranolol HCl (Propranolol Hcl La 80 Mg Capcr) 80 mg PO DAILY [facility] Stop: 06/13/25 08:59 Last Admin: 05/14/25 08:25 Dose: 80 mg Tramadol HCl (Tramadol Hcl 50 Mg Tablet) 50 mg PO Q4H PRN PRN Reason: Moderate Pain (Scale 4, 5, 6) Stop: 06/12/25 13:11 Last Admin: 05/15/25 01:01 Dose: 50 mg
[2025-05-15 08:19] LABS: Hematocrit (blood only) 41.9 % (37.0-47.0); Hemoglobin 15.2 g/dl (12.0-16.0); Mean Corpuscular Hemoglobin 33.8 pg (25.0-34.0); Mean Corpuscular Volume 93.1 fL (80.0-100.0); Platelet Count 180 K/uL (130-400); RDW Standard Deviation 43.2 fL (36.4-46.3); Red Blood Count 4.50 M/uL (4.20-5.40); White Blood Count 9.36 K/ul (4.8-10.8)
[2025-05-15] MEDS: SODIUM CHLORIDE 0.9% 500 ML IV ONE (08:35)
[2025-05-15] MEDS: ATORVASTATIN 10 MG TAB PO SCH (08:36)
[2025-05-15] MEDS: POTASSIUM CHLORIDE / WTR 10 MEQ/100 ML PLCT IV SCH (08:36)
[2025-05-15 08:38] LABS: Anion Gap 7.0 (3-11); Blood Urea Nitrogen 10.0 mg/dl (6-23); Calcium 8.7 mg/dl (8.6-10.3); Carbon Dioxide 26.0 mmol/L (21-32); Chloride 98.0 mmol/L (98-107); Creatinine Clr Calc Pharmacy 66.2 ml/min; Glucose 106.0 mg/dl (70-99(Fasting)); Magnesium 1.7 mg/dl (1.7-2.4); Potassium 3.9 mmol/L (3.5-5.1); Sodium 131.0 mmol/L (136-145)
[2025-05-15] MEDS: ACETAMINOPHEN 325 MG TAB PO PRN (13:27)
[2025-05-16 07:32] LABS: Hematocrit (blood only) 41.5 % (37.0-47.0); Hemoglobin 14.9 g/dl (12.0-16.0); Mean Corpuscular Hemoglobin 32.8 pg (25.0-34.0); Mean Corpuscular Volume 91.4 fL (80.0-100.0); Platelet Count 179 K/uL (130-400); RDW Standard Deviation 42.0 fL (36.4-46.3); Red Blood Count 4.54 M/uL (4.20-5.40); White Blood Count 9.34 K/ul (4.8-10.8)
[2025-05-16 07:37] LABS: Anion Gap 7.0 (3-11); Blood Urea Nitrogen 11.0 mg/dl (6-23); Calcium 8.5 mg/dl (8.6-10.3); Carbon Dioxide 25.0 mmol/L (21-32); Chloride 97.0 mmol/L (98-107); Creatinine Clr Calc Pharmacy 69.1 ml/min; Glucose 91.0 mg/dl (70-99(Fasting)); Magnesium 1.7 mg/dl (1.7-2.4); Potassium 3.5 mmol/L (3.5-5.1); Sodium 129.0 mmol/L (136-145)
--- NOTE | 2025-05-16 07:54 | Hospitalist Progress Note ---
Date of Service May 16, 2025 Assessment & Plan (1) Diverticulitis: (2) Acute UTI (urinary tract infection): (3) Acute left-sided low back pain: (4) Hypertension: (5) HLD (hyperlipidemia): (6) Tremor: Plan This is an 80 yr old F who has a significant PMH of HTN, HLD, GERD, Osteoarthritis who presents to ED 2/2 L sided low back and lower abd pain x 5 days. #Acute uncomplicated Diverticulitis #Abdominal pain continue IV zosyn conservative tx with bowel rest, IVF, advanced to clear liquid consider gen surg if no significant improvement recommend c scope 6-8 weeks after resolution #Acute uncomplicated cystitis urinary urg/freq, abnormal urine Follow urine culture continue IV zosyn for now #Left sided low back pain/flank pain poss. MSK in nature, poss. 2/2 diverticulitis may improve with improvement of infections - seems improved now CT Lumbar spine showing DDD PT/OT for now #HTN #Tremor BP elevated on admission likely 2/2 to pain continue propranolol #DVT ppx: Lovenox FULL CODE PCP: Dr. Cueva Dispo: med/surg Admission and Anticipated Discharge Date Admission Date: May 13, 2025 Subjective Pt seen in follow up of diverticulitis, UTI Pt sitting up in bed in NAD, reports feeling better this AM. Yesterday she said she had quite a bit of pain no fever, chills, chest pain, shortness of breath, no abd.pain n/v Review of Systems Review of Systems: All systems reviewed & are unremarkable except as noted in Subjective Physical Exam Physical Exam: Constitutional: WD/WN, in NAD Head: Normocephalic, Atraumatic Eyes: PERRL, conjunctivae normal, anicteric sclerae ENMT: external ear and nose normal Neck: normal visual inspection Respiratory: normal respiratory effort, lungs clear to auscultation, no wheeze, rales, rhonchi. Cardiovascular: RRR, no murmur, no edema Chest: normal inspection of chest Abdomen: normal bowel sounds, soft, TTP LLQ, left flank, no rebound/guarding Musculoskeletal: arom x4, + pain to palpation L paraspinal musculature Skin: no rashes, warm and dry normal turgor Neurologic: PERRL, EOMI, no face palsy, no dysarthria, moves all extremities Psychiatric: A+Ox3, euthymic affect Results & Data Results & Data Vital Signs (Past 12 Hours) Vital Signs Temp Pulse Resp BP Pulse Ox O2 Del Method 05/16/25 07:45 36.3 C L 78 17 115/78 96 Room Air Laboratory Results 05/16/25 05/15/25 Range/Units 06:44 07:55 WBC 9.34 9.36 (4.8-10.8) K/ul RBC 4.54 4.50 (4.20-5.40) M/uL Hgb 14.9 15.2 (12.0-16.0) g/dl Hct 41.5 41.9 (37.0-47.0) % MCV 91.4 93.1 (80.0-100.0) fL MCH 32.8 33.8 (25.0-34.0) pg MCHC 35.9 36.3 H (32.0-36.0) g/dL RDW Std Deviation 42.0 43.2 (36.4-46.3) fL RDW Coeff of Gregory 12.7 12.7 (11.5-14.5) % Plt Count 179 180 (130-400) K/uL MPV 11.0 10.8 (9.4-12.4) fL Sodium 129 L 131 L (136-145) mmol/L Potassium 3.5 3.9 (3.5-5.1) mmol/L Chloride 97 L 98 (98-107) mmol/L Carbon Dioxide 25 26 (21-32) mmol/L Anion Gap 7 7 (3-11) BUN 11 10 (6-23) mg/dl Creatinine 0.69 0.72 (0.6-1.2) mg/dl Est Cr Clr Drug Dosing 69.1 66.2 ml/min eGFR 87.13 83.95 BUN/Creatinine Ratio 15.9 13.9 (10-20) Glucose 91 106 H (70-99(Fasting)) mg/dl Calcium 8.5 L 8.7 (8.6-10.3) mg/dl Phosphorus 2.7 2.7 (2.5-4.9) mg/dl Magnesium 1.7 1.7 (1.7-2.4) mg/dl Medications Administered Current Inpatient Medications Acetaminophen (Acetaminophen 325 Mg Tab) 650 mg PO Q4H PRN PRN Reason: pain/fever Stop: 06/12/25 13:11 Last Admin: 05/15/25 13:27 Dose: 650 mg Atorvastatin Calcium (Atorvastatin 10 Mg Tab) 10 mg PO MoWeFr@0900 [facility] Stop: 06/14/25 08:59 Last Admin: 05/15/25 08:36 Dose: 10 mg Enoxaparin Sodium (Enoxaparin Inj 40 Mg/0.4 Ml Syr) 40 mg SQ HS [facility] Stop: 06/12/25 20:59 Last Admin: 05/15/25 20:08 Dose: 40 mg Famotidine (Famotidine 20 Mg Tab) 20 mg PO DAILY PRN PRN Reason: Heartburn Stop: 06/12/25 13:11 Hydralazine HCl (Hydralazine Hcl 20 Mg/Ml Vial) 5 mg IV Q6H PRN PRN Reason: SBP > 180 Stop: 06/12/25 14:12 Last Admin: 05/15/25 15:59 Dose: 5 mg Piperacillin Sod/Tazobactam Sod (Zosyn) 4.5 gm in 100 mls @ 25 mls/hr IV Q8H [facility]; Protocol Stop: 05/23/25 16:29 Last Infusion: 05/16/25 04:55 Dose: Infused Magnesium Sulfate/Dextrose (Magnesium Sulfate / D5w) 1 gm in 100 mls @ 50 mls/hr IV ONE ONE Stop: 05/16/25 09:52 Lidocaine (Lidocaine 5% 1 Patch) 1 patch TD DAILY [facility] Stop: 06/12/25 12:29 Last Admin: 05/15/25 08:37 Dose: Not Given Melatonin (Melatonin 3 Mg Tab) 6 mg PO HS PRN PRN Reason: Sleep Stop: 06/12/25 20:59 Last Admin: 05/14/25 20:00 Dose: 6 mg Miscellaneous (Remove Lidoderm Patch) 1 each N/A DAILY@2100 [facility] Stop: 06/12/25 20:59 Last Admin: 05/15/25 20:09 Dose: 1 each Morphine Sulfate (Morphine Sulfate 4 Mg/Ml 1 Ml Carp\Vial) 3 mg IV Q4H PRN PRN Reason: Severe Pain (Scale 7, 8, 9,10) Stop: 05/27/25 13:11 Last Admin: 05/15/25 02:01 Dose: 3 mg Ondansetron HCl (Ondansetron Inj 2 Mg/Ml 2 Ml Vial) 4 mg IV Q6H PRN PRN Reason: Nausea Stop: 06/12/25 13:11 Last Admin: 05/14/25 20:01 Dose: 4 mg Polyethylene Glycol (Polyethylene (Miralax) 17 Gm Pack) 17 gm PO DAILY PRN PRN Reason: Constipation Stop: 06/12/25 13:11 Potassium Chloride (Potassium Chloride Crtab 20 Meq Tabcr) 40 meq PO NOW STA Stop: 05/16/25 07:54 Propranolol HCl (Propranolol Hcl La 80 Mg Capcr) 80 mg PO DAILY [facility] Stop: 06/13/25 08:59 Last Admin: 05/15/25 08:36 Dose: 80 mg Tramadol HCl (Tramadol Hcl 50 Mg Tablet) 50 mg PO Q4H PRN PRN Reason: Moderate Pain (Scale 4, 5, 6) Stop: 06/12/25 13:11 Last Admin: 05/16/25 00:41 Dose: 50 mg
[2025-05-16] MEDS: MAGNESIUM SULFATE / D5W 1 GM/100 ML BAG IV ONE (08:09)
[2025-05-16] MEDS: POLYETHYLENE (MIRALAX) 17 GM PACK PO PRN (08:09)
[2025-05-16] MEDS: POTASSIUM CHLORIDE CRTAB 20 MEQ TABCR PO STA (08:09)
[2025-05-16] MEDS: SODIUM CHLORIDE 0.9% 500 ML IV ONE (14:31)
[2025-05-17 06:59] LABS: Hematocrit (blood only) 40.2 % (37.0-47.0); Hemoglobin 14.1 g/dl (12.0-16.0); Mean Corpuscular Hemoglobin 32.9 pg (25.0-34.0); Mean Corpuscular Volume 93.9 fL (80.0-100.0); Platelet Count 175 K/uL (130-400); RDW Standard Deviation 44.3 fL (36.4-46.3); Red Blood Count 4.28 M/uL (4.20-5.40); White Blood Count 7.76 K/ul (4.8-10.8)
[2025-05-17 09:18] LABS: Anion Gap 6.0 (3-11); Blood Urea Nitrogen 14.0 mg/dl (6-23); Calcium 8.6 mg/dl (8.6-10.3); Carbon Dioxide 26.0 mmol/L (21-32); Chloride 103.0 mmol/L (98-107); Creatinine Clr Calc Pharmacy 45.8 ml/min; Glucose 92.0 mg/dl (70-99(Fasting)); Magnesium 2.0 mg/dl (1.7-2.4); Potassium 3.5 mmol/L (3.5-5.1); Sodium 135.0 mmol/L (136-145)
--- NOTE | 2025-05-17 15:44 | Hospitalist Progress Note ---
Date of Service May 17, 2025 Assessment & Plan (1) Diverticulitis: (2) Acute UTI (urinary tract infection): (3) Acute left-sided low back pain: (4) Hypertension: (5) HLD (hyperlipidemia): (6) Tremor: Plan This is an 80 yr old F who has a significant PMH of HTN, HLD, GERD, Osteoarthritis who presents to ED 2/2 L sided low back and lower abd pain x 5 days. #Acute uncomplicated Diverticulitis #Abdominal pain continue IV zosyn conservative tx with bowel rest, IVF, advanced to clear liquid and tolerating. Pain much improved now/ resolved - will advance to low fiber diet consider gen surg if no significant improvement recommend c scope 6-8 weeks after resolution #Acute uncomplicated cystitis urinary urg/freq, abnormal urine urine culture only showed gardnerella vaginalis pt receiving zosyn for diverticulitis, as above #Left sided low back pain/flank pain poss. MSK in nature, poss. 2/2 diverticulitis - improved / resolved now #HTN #Tremor BP elevated on admission likely 2/2 to pain continue propranolol current BP 125/80 #DVT ppx: Lovenox FULL CODE PCP: Dr. Cueva Dispo: med/surg Admission and Anticipated Discharge Date Admission Date: May 13, 2025 Subjective Pt seen in follow up of diverticulitis Pt sitting up in bed in NAD, reports feeling much better today, denies any abd. pain. Will advance diet to low fiber. no fever, chills, chest pain, shortness of breath, no abd.pain n/v Review of Systems Review of Systems: All systems reviewed & are unremarkable except as noted in Subjective Physical Exam Physical Exam: Constitutional: WD/WN, in NAD Head: Normocephalic, Atraumatic Eyes: PERRL, conjunctivae normal, anicteric sclerae ENMT: external ear and nose normal Neck: normal visual inspection Respiratory: normal respiratory effort, lungs clear to auscultation, no wheeze, rales, rhonchi. Cardiovascular: RRR, no murmur, no edema Chest: normal inspection of chest Abdomen: normal bowel sounds, soft, nontender to palp. (resolved) Musculoskeletal: arom x4, + pain to palpation L paraspinal musculature Skin: no rashes, warm and dry normal turgor Neurologic: PERRL, EOMI, no face palsy, no dysarthria, moves all extremities Psychiatric: A+Ox3, euthymic affect Results & Data Results & Data Vital Signs (Past 12 Hours) Vital Signs Temp Pulse Resp BP Pulse Ox O2 Del Method 05/17/25 15:15 36.6 C 62 20 125/80 94 Room Air 05/17/25 07:38 36.7 C 62 20 126/80 95 Room Air Laboratory Results 05/17/25 Range/Units 06:25 WBC 7.76 (4.8-10.8) K/ul RBC 4.28 (4.20-5.40) M/uL Hgb 14.1 (12.0-16.0) g/dl Hct 40.2 (37.0-47.0) % MCV 93.9 (80.0-100.0) fL MCH 32.9 (25.0-34.0) pg MCHC 35.1 (32.0-36.0) g/dL RDW Std Deviation 44.3 (36.4-46.3) fL RDW Coeff of Gregory 12.9 (11.5-14.5) % Plt Count 175 (130-400) K/uL MPV 11.2 (9.4-12.4) fL Sodium 135 L (136-145) mmol/L Potassium 3.5 (3.5-5.1) mmol/L Chloride 103 (98-107) mmol/L Carbon Dioxide 26 (21-32) mmol/L Anion Gap 6 (3-11) BUN 14 (6-23) mg/dl Creatinine 1.04 D (0.6-1.2) mg/dl Est Cr Clr Drug Dosing 45.8 ml/min eGFR 54.00 BUN/Creatinine Ratio 13.5 (10-20) Glucose 92 (70-99(Fasting)) mg/dl Calcium 8.6 (8.6-10.3) mg/dl Phosphorus 2.8 (2.5-4.9) mg/dl Magnesium 2.0 (1.7-2.4) mg/dl Medications Administered Current Inpatient Medications Acetaminophen (Acetaminophen 325 Mg Tab) 650 mg PO Q4H PRN PRN Reason: pain/fever Stop: 06/12/25 13:11 Last Admin: 05/15/25 13:27 Dose: 650 mg Atorvastatin Calcium (Atorvastatin 10 Mg Tab) 10 mg PO MoWeFr@0900 [facility] Stop: 06/14/25 08:59 Last Admin: 05/15/25 08:36 Dose: 10 mg Enoxaparin Sodium (Enoxaparin Inj 40 Mg/0.4 Ml Syr) 40 mg SQ HS [facility] Stop: 06/12/25 20:59 Last Admin: 05/16/25 20:04 Dose: 40 mg Famotidine (Famotidine 20 Mg Tab) 20 mg PO DAILY PRN PRN Reason: Heartburn Stop: 06/12/25 13:11 Hydralazine HCl (Hydralazine Hcl 20 Mg/Ml Vial) 5 mg IV Q6H PRN PRN Reason: SBP > 180 Stop: 06/12/25 14:12 Last Admin: 05/15/25 15:59 Dose: 5 mg Piperacillin Sod/Tazobactam Sod (Zosyn) 4.5 gm in 100 mls @ 25 mls/hr IV Q8H [facility]; Protocol Stop: 05/23/25 16:29 Last Infusion: 05/17/25 14:06 Dose: Infused Lidocaine (Lidocaine 5% 1 Patch) 1 patch TD DAILY [facility] Stop: 06/12/25 12:29 Last Admin: 05/17/25 09:09 Dose: Not Given Melatonin (Melatonin 3 Mg Tab) 6 mg PO HS PRN PRN Reason: Sleep Stop: 06/12/25 20:59 Last Admin: 05/14/25 20:00 Dose: 6 mg Miscellaneous (Remove Lidoderm Patch) 1 each N/A DAILY@2100 [facility] Stop: 06/12/25 20:59 Last Admin: 05/16/25 20:04 Dose: Not Given Morphine Sulfate (Morphine Sulfate 4 Mg/Ml 1 Ml Carp\Vial) 3 mg IV Q4H PRN PRN Reason: Severe Pain (Scale 7, 8, 9,10) Stop: 05/27/25 13:11 Last Admin: 05/15/25 02:01 Dose: 3 mg Ondansetron HCl (Ondansetron Inj 2 Mg/Ml 2 Ml Vial) 4 mg IV Q6H PRN PRN Reason: Nausea Stop: 06/12/25 13:11 Last Admin: 05/14/25 20:01 Dose: 4 mg Polyethylene Glycol (Polyethylene (Miralax) 17 Gm Pack) 17 gm PO DAILY PRN PRN Reason: Constipation Stop: 06/12/25 13:11 Last Admin: 05/16/25 08:09 Dose: 17 gm Propranolol HCl (Propranolol Hcl La 80 Mg Capcr) 80 mg PO DAILY [facility] Stop: 06/13/25 08:59 Last Admin: 05/17/25 09:09 Dose: 80 mg Tramadol HCl (Tramadol Hcl 50 Mg Tablet) 50 mg PO Q4H PRN PRN Reason: Moderate Pain (Scale 4, 5, 6) Stop: 06/12/25 13:11 Last Admin: 05/16/25 00:41 Dose: 50 mg
[2025-05-17] MEDS: AMOXICILLIN/CLAVULANATE 875 MG TAB PO SCH (16:30)
[2025-05-18 07:30] VITALS: O2SAT 96
[2025-05-18] MEDS: POTASSIUM CHLORIDE CRTAB 20 MEQ TABCR PO STA (09:42)
--- NOTE | 2025-05-18 09:52 | Discharge Summary ---
Date of Service May 18, 2025 Admission HPI Per Admitting Provider This is an 80 yr old F who has a significant PMH of HTN, HLD, GERD, Osteoarthritis who presents to ED 2/2 L sided low back and lower abd pain x 5 days. History is obtained from patient, son at bedside, ED provider and external chart review. Patient reports left-sided low back pain along with left lower quadrant and periumbilical abdominal pain that is been progressively getting worse over the last 5 days. She also complains of associated nausea, constipation, last bowel movement was 3 days ago, urinary urgency, frequency and dysuria. She denies prior history of diverticulitis. She does have a prior history of urinary tract infections for which she does feel very similar to previous UTI 30 years ago. She denies any fever, chills, sweats, lightheadedness, dizziness, pain, shortness of breath, cough, hematuria or hematochezia. She has been taking [id number] Tylenol without relief. She was seen and evaluated on 05/11 in ED and at that time CT abdomen pelvis was unremarkable. She was prescribed a few tablets of oxycodone for which is not helping. She presents back to ED today due to worsening symptoms. She has been eating/drinking. Currently her pain is a 7 out of 10. Nothing makes the pain better or worse. In ED CT scan of abdomen pelvis reveal findings suspicious for mild diverticulitis involving the distal descending and proximal sigmoid colon. Lumbar spine CT was also ordered due to patient complaining of left-sided low back pain along with left-sided hip pain. Notable findings are moderate bilateral neural foraminal narrowing at L5-S1 and moderate central canal narrowing at L4-L5. Admission Exam Per Admitting Provider Constitutional: WD/WN, vitals as above, NAD, sitting up in bed, pleasant, c onversing easily Head: Normocephalic, Atraumatic Eyes: PERRL, conjunctivae normal, anicteric sclerae ENMT: external ear and nose normal, oropharynx normal Neck: trachea midline, no thyromegaly normal visual inspection Respiratory: normal respiratory effort, lungs clear to auscultation, no wheeze, rales, rhonchi. Normal insp/exp effort, no accessory muscle use Cardiovascular: RRR, no murmur, no edema Vessels: no JVD or carotid bruit Chest: normal inspection of chest Abdomen: normal bowel sounds, soft, TTP LLQ and periumbilical region, no rebound/guarding, no hepatosplenomegaly Musculoskeletal: arom x4, + pain to palpation L paraspinal musculature Skin: no rashes, warm and dry normal turgor Neurologic: PERRL, EOMI, accommodation nl, no face palsy, no dysarthria CN's II-XI intact bilaterally and moves all extremities Psychiatric: A+Ox3, euthymic affect Principal Diagnosis Acute diverticulitis Discharge Exam Constitutional: WD/WN, in NAD Head: Normocephalic, Atraumatic Eyes: PERRL, conjunctivae normal, anicteric sclerae ENMT: external ear and nose normal Neck: normal visual inspection Respiratory: normal respiratory effort, lungs clear to auscultation, no wheeze, rales, rhonchi. Cardiovascular: RRR, no murmur, no edema Chest: normal inspection of chest Abdomen: normal bowel sounds, soft, nontender to palp. (resolved) Skin: no rashes, warm and dry normal turgor Neurologic: PERRL, EOMI, no face palsy, no dysarthria, moves all extremities Psychiatric: A+Ox3, euthymic affect Discharge Data Allergies Allergy/AdvReac Type Severity Reaction Status Date / Time No Known Allergies Allergy Verified 01/24/16 06:27 Consultations 05/13/25 11:01 ED Decision to Admit Stat Ordered Studies 05/13/25 08:57 CT Abd and Pelvis [CT abd pelvis IV con only] Stat IMPRESSION: Findings suspicious for mild diverticulitis involving the distal descending/proximal sigmoid colon. CT lumbar spine w con Stat IMPRESSION: 1. No lumbar spine fracture seen. 2. Lumbar degenerative changes most severe at the lower lumbar spine. Hospital Course (1) Diverticulitis: (2) Acute UTI (urinary tract infection): (3) Acute left-sided low back pain: (4) Hypertension: (5) HLD (hyperlipidemia): (6) Tremor: Plan This is an 80 yr old F who has a significant PMH of HTN, HLD, GERD, Osteoarthritis who presents to ED 2/2 L sided low back and lower abd pain x 5 days. #Acute uncomplicated Diverticulitis #Abdominal pain Initially on IV zosyn -> transitioned to PO augmentin conservative tx with bowel rest, IVF, advanced to clear liquid and tolerating. Pain much improved now/ resolved - advanced to low fiber diet - pt is tolerating and has no abd. pain recommend colonoscopy 6-8 weeks after resolution PCP follow up arranged #Acute uncomplicated cystitis urinary urg/freq, abnormal urine urine culture only showed gardnerella vaginalis pt receiving zosyn for diverticulitis, as above #Left sided low back pain/flank pain poss. MSK in nature, poss. 2/2 diverticulitis - improved / resolved now #HTN #Tremor BP elevated on admission likely 2/2 to pain continue propranolol BP normal now Total Time Total Time Spent Total Time Spent (In Minutes): 40 Discharge Plan Discharge Items Patient Disposition: Home - Self-Care Reason For Visit: ACUTE DIVERTICULITIS Discharge Diagnosis: Acute diverticulitis Condition on Discharge: Fair Activity: Per Instructions section Non-emergency contact: Primary Care Provider and Parts Cataloger Call non-emergency contact if: you have any medication questions and your symptoms worsen Follow-up/Referrals: Rickey Cueva MD [Primary Care Provider] - 05/25/25 10:40 am (Date & Time 05/25/2025 10:40 AM Provider: Raquel Milner PA-C General Internal Medicine [facility] ) Diet: Low Fiber Addtl Attending Provider Instructions: Follow up with primary care doctor within 1 week. The appointment was scheduled for you for May 25, 2025. Finish antibiotic course as prescribed. Follow low fiber diet for next few weeks, then slowly advance fiber. You will need colonoscopy after your treatment, this will be arranged for you by your primary care doctor/ Gastroenterology. Pending Studies at Discharge: No Stand-Alone Forms: [facility], Smoking Cessation Medications and DC Order Prescriptions: New amoxicillin-pot clavulanate 875-125 mg Tablet 1 tab PO BIDM 6 Days Qty: 12 0RF Continued oxycodone 5 mg tablet 5 mg PO Q8H PRN (Reason: pain) Qty: 10 0RF atorvastatin 10 mg tablet 10 mg PO .3X A WEEK Rx Instructions: mon,wed,fri propranolol 80 mg capsule,extended release 24hr 80 mg PO DAILY Discharge Orders: Discharge Order (Routine); Ordered 05/18/25 Ordered By: Jerrod Ovalle/Other Patient Handouts: Low-Fiber Diet Admission Data Admit Date/Time: 05/13/25 12:00 Attending Provider: Jerrod Tee Admit Provider: Jeremy Carrington Primary Care Provider: Rickey Cueva Other Providers: Jeremy Carrington
[2025-05-18 13:20] VITALS: BP 130/80; PULSE 69; RESP 15; TEMP 97.3
== END 2025-05-18 15:30 | disposition home or self-care (01) | DRG 392 ==
LOC: ED 08:20 → 3N 12:00 → SUATTDRO 12:00 → 3N 12:45